=== PATIENT | female | born 1995 | race Caucasian/White ===

== ENCOUNTER 2017-01-19 20:22 | Emergency (ER) | payer OTHER ==
[~2017-01-19 20:22] MED LIST: LEXA10TA PO; LEXA20TA PO; LORA-474 PO; TEMA15 PO
[2017-01-19 20:25] VITALS: BP 146/92; PULSE 86; RESP 14; TEMP 97.9; O2SAT 100
--- NOTE | 2017-01-19 21:09 | PD ---
Physical Exam Time Seen by Provider: 21:09 Narrative 21 y/o female here with sore throat, cough, nausea for one week. vital signs reviewed. Seen at triage desk. Awaiting bed placement. Data Data Last Documented VS Vital Signs Date Time Temp Pulse Resp B/P Pulse Ox O2 Delivery O2 Flow Rate FiO2 01/19/17 20:25 97.9 86 14 146/92 100 Room Air [facility] Medical Record Reviewed: Yes Supervised Visit with TIM: Fransico Martini January 19, 2017 21:09
--- NOTE | 2017-01-19 21:25 | PD ---
HPI Chief Complaint: Cold / Flu Symptoms Time Seen by Provider: 21:25 Travel History International Travel<30 days: No Contact w/Intl Traveler<30days: No Traveled to known affect area: No History of Present Illness HPI 21-year-old female presents to the emergency department for evaluation of sore throat, difficulty swallowing, cough, and nausea worsening over the last week. Patient states that her cough and nausea have subsided but her throat is very painful. It is difficult to swallow. Reports subjective fever. She has been chilled. Denies any headache or nuchal rigidity. Patient has no other symptoms to report. PFSH Past Medical History Arthritis: No Asthma: No Autoimmune Disease: No Anxiety: Yes Depression: Yes Heart Rhythm Problems: No Cancer: No Cardiovascular Problems: No Chemotherapy: No Chest Pain: No Congestive Heart Failure: No Cerebrovascular Accident: No Diabetes: No Diminished Hearing: No Endocrine: No Genitourinary: No Headaches: No Hiatal Hernia: No Immune Disorder: No Kidney Stones: No Musculoskeletal: No Neurologic: No Psychiatric: Yes (anxiety, depression) Respiratory: No Immunizations Current: Yes Migraines: No Radiation Therapy: No Renal Failure: No Seizures: No Sickle Cell Disease: No Sleep Apnea: No Thyroid Disease: No Ulcer: No ?: Not LMP: 01/06/17 : 0 Para: 0 Miscarriage: 0 : 0 Past Surgical History Abdominal Surgery: No AICD: No Arteriovenous Shunt: No Body Medical Devices: thalacemia minor trait Cardiac Surgery: No Ear Surgery: No Endocrine Surgery: No Eye Surgery: No Genitourinary Surgery: No Insulin Pump: No Joint Replacement: No Neurologic Surgery: No Pacemaker: No Thoracic Surgery: No Other Surgery: No Social History Alcohol Use: No Tobacco Use: No Substance Use: No Allergies-Medications (Allergen,Severity, Reaction): Coded Allergies: Biaxin (Verified Allergy, Severe, 01/19/17) Per pt. Reported Meds & Prescriptions Reported Meds & Active Scripts Active Amoxicillin 500 Mg Tab 500 Mg PO BID 10 Days Review of Systems Except as stated in HPI: all other systems reviewed are Neg Physical Exam Narrative GENERAL: Well-nourished, well-developed female patient in no acute distress SKIN: Focused skin assessment warm/dry. HEAD: Normocephalic. EYES: No scleral icterus. No injection or drainage. ENT: Mucosa pink and moist. 2+ tonsillar edema with erythema and scattered exudate. No uvular edema. No uvular, palatal, or tonsillar deviation. Airway patent. Nasal turbinates appear normal without nasal blood, purulent drainage or septal hematoma. NECK: Supple, trachea midline. Anterior cervical lymphadenopathy. CARDIOVASCULAR: Regular rate and rhythm without murmurs, gallops, or rubs. RESPIRATORY: Breath sounds equal bilaterally. No accessory muscle use. GASTROINTESTINAL: Abdomen soft, non-tender, nondistended. MUSCULOSKELETAL: No cyanosis, or edema. BACK: Nontender without obvious deformity. No CVA tenderness. Data Data Last Documented VS Vital Signs Date Time Temp Pulse Resp B/P Pulse Ox O2 Delivery O2 Flow Rate FiO2 01/19/17 21:08 01/19/17 20:25 97.9 86 14 100 Room Air Orders Group A Rapid Strep Screen (01/19/17 21:24) Strep Culture (Group A) (01/19/17 21:25) MDM Medical Decision Making Medical Screen Exam Complete: Yes Emergency Medical Condition: Yes Medical Record Reviewed: Yes Differential Diagnosis Exudative pharyngitis viral versus strep versus gastroenteritis versus tonsillitis versus viral syndrome Narrative Course 21-year-old female presents to emergency department for evaluation of sore throat, nausea, fever worsening of the last week. Patient does have tonsillar edema and erythema with scattered exudate. She has associated lymphadenopathy. Strep screen is negative. Discussed this with the patient. she strongly believes she has strep throat. I explained to her accident to think eyelids for care. She is requesting an antibiotic. I have explained the possibility that this is viral and a culture was sent and if it grew positive we would have a diagnosis. I'll provide her with a prescription but strongly encouraged her to delay starting it until the culture grows in 3 days. She agrees to return immediately with any acute worsening of symptoms. Diagnosis Primary Impression: Exudative pharyngitis Referrals: Primary Care Physician Patient Instructions: General Instructions, Pharyngitis (ED) Departure Forms: Tests/Procedures, Work Release Enter return to work date: January 21, 2017 Additional Instructions: Warm salt water gargles may help to alleviate symptoms Follow-up with a primary care provider Tylenol and/or ibuprofen as directed on package as needed for pain Avoid abrasive and acidic foods Return immediately with any acute worsening of symptoms Med/Other Pt SpecificInfo: Prescription(s) given Scripts Amoxicillin 500 Mg Xul197 Mg PO BID 10 Days Ref 0 Prov:Kayleigh Bautista 01/19/17 Disposition: 01 DISCHARGE HOME Condition: Stable Kayleigh Bautista January 19, 2017 21:25
[2017-01-19] MEDS ORDERED: AMOX500T PO (22:40)
== END 2017-01-19 23:18 | disposition home or self-care (01) ==
LOC: NEPK 20:22
DX: J02.9 Acute pharyngitis, unspecified (principal)
CPT/HCPCS: 87081; 87880; 99283

== ENCOUNTER 2017-11-10 09:42 | Emergency (ER) | payer OTHER ==
[~2017-11-10] VITALS: Ht 167.6 cm; Wt 100.0 kg
[~2017-11-10 09:42] MED LIST changes: +AMOX500T PO; -LEXA10TA PO; -LEXA20TA PO; -LORA-474 PO; -TEMA15 PO
[2017-11-10 09:43] VITALS: BP 131/60; PULSE 76; RESP 14; TEMP 97.8; O2SAT 100
[2017-11-10 10:52] VITALS: BP 122/82; PULSE 72; RESP 18; O2SAT 100
--- NOTE | 2017-11-10 11:30 | PD ---
HPI Chief Complaint: Psychiatric Symptoms Time Seen by Provider: 10:30 Travel History International Travel<30 days: No Contact w/Intl Traveler<30days: No Traveled to known affect area: No History of Present Illness HPI 22-year-old female presents voluntarily to the emergency department for psychological evaluation. She reports feeling depressed and anxious about recent events after going through a breakup with her boyfriend about a month ago. She says she has had thoughts of suicide but says she does not have any plan to kill herself and does not want to kill herself. She admits to "harming herself "yesterday by taking 4 times the amount of her prescribed gabapentin. Says she is only supposed to take 1 pill and she took 4 of them. She said she did not do it in an attempt to kill herself, but to numb the feelings that she was feeling. She has history of suicidal attempt by overdosing and trying to drown herself. Denies homicidal ideations. Reports occasional marijuana use. Otherwise denies other illicit drug use. Reports alcohol use socially. States the voices in her head tell her that she is ugly, stupid, and other degrading things. She denies visual hallucinations. Symptoms were exacerbated about 3 weeks ago when her ex-boyfriend started seeing another girl. No known relieving factors. Symptoms are moderate to severe in severity. Psychiatrist is Dr. Abreu. She went to urgent care yesterday in regards to her complaints and she was prescribed Lexapro. History of anxiety and depression. Denies significant past medical history. Allergies to clarithromycin. Has no other medical complaints. No other modifying factors or associated signs and symptoms. PFSH Past Medical History Arthritis: No Asthma: No Autoimmune Disease: No Anxiety: Yes Depression: Yes Heart Rhythm Problems: No Cancer: No Cardiovascular Problems: No Chemotherapy: No Chest Pain: No Congestive Heart Failure: No Cerebrovascular Accident: No Diabetes: No Diminished Hearing: No Endocrine: No Genitourinary: No Headaches: No Hiatal Hernia: No Immune Disorder: No Kidney Stones: No Musculoskeletal: No Neurologic: No Psychiatric: Yes (anxiety, depression) Respiratory: No Immunizations Current: Yes Migraines: No Radiation Therapy: No Renal Failure: No Seizures: No Sickle Cell Disease: No Sleep Apnea: No Thyroid Disease: No Ulcer: No LMP: 10/13/17 : 0 Para: 0 Miscarriage: 0 : 0 Past Surgical History Abdominal Surgery: No AICD: No Arteriovenous Shunt: No Body Medical Devices: thalacemia minor trait Cardiac Surgery: No Ear Surgery: No Endocrine Surgery: No Eye Surgery: No Genitourinary Surgery: No Insulin Pump: No Joint Replacement: No Neurologic Surgery: No Pacemaker: No Thoracic Surgery: No Other Surgery: No Social History Alcohol Use: No Tobacco Use: No Substance Use: No Allergies-Medications (Allergen,Severity, Reaction): Coded Allergies: clarithromycin (Unverified Allergy, Severe, 05/03/17) Per pt. Reported Meds & Prescriptions Reported Meds & Active Scripts Active Amoxicillin 500 Mg Tab 500 Mg PO BID 10 Days Review of Systems Except as stated in HPI: all other systems reviewed are Neg Physical Exam Narrative GENERAL: Well-nourished, well-developed black female patient, in no acute distress SKIN: Warm and dry. HEAD: Atraumatic. Normocephalic. EYES: Pupils equal and round. ENT: Mucosa pink and moist. NECK: Supple. Trachea midline. CARDIOVASCULAR: Regular rate and rhythm. No murmur appreciated. RESPIRATORY: No accessory muscle use. Clear to auscultation. Breath sounds equal bilaterally. GASTROINTESTINAL: Abdomen soft, non-tender, nondistended. Hepatic and splenic margins not palpable. Bowel sounds are active 4 quadrants. MUSCULOSKELETAL: No obvious deformities. No clubbing. No cyanosis. No edema. BACK: No CVA tenderness. NEUROLOGICAL: Awake and alert. Oriented 3. No obvious cranial nerve deficits. Motor grossly within normal limits. Normal speech. Moves all extremities. 5/5 strength to all extremities. PSYCHIATRIC: No delusional thought processes. No hallucinations. Data Data Last Documented VS Vital Signs Date Time Temp Pulse Resp B/P (MAP) Pulse Ox O2 Delivery O2 Flow Rate FiO2 11/10/17 10:52 72 18 122/82 (95) 100 Room Air 11/10/17 09:43 97.8 Orders Orders Complete Blood Count With Diff (11/10/17 10:29) Comprehensive Metabolic Panel (11/10/17 10:29) Thyroid Stimulating Hormone (11/10/17 10:29) Ed Urine Pregnancytest Poc (11/10/17 10:29) Psych Screen (11/10/17 10:29) Drug Screen, Random Urine (11/10/17 10:29) Alcohol (Ethanol) (11/10/17 10:29) Salicylates (Aspirin) (11/10/17 10:29) Tylenol (Acetaminophen) (11/10/17 10:29) Diet Regular Basic (11/10/17 Lunch) MDM Medical Decision Making Medical Screen Exam Complete: Yes Emergency Medical Condition: Yes Medical Record Reviewed: Yes Differential Diagnosis Depression, anxiety, suicidal thoughts, medical clearance for psychological evaluation Narrative Course Patient presents voluntarily. Physical examination and vital signs are essentially unremarkable. Patient has no medical complaints to report. Psych screen has been ordered. If the laboratory results are unremarkable, the patient will be medically cleared for psychiatric evaluation and disposition. Diagnosis Primary Impression: Encounter for psychological evaluation Condition: Stable Sophia June Nov 10, 2017 11:30
[2017-11-10 12:34] LABS: AUTOMATED NEUTROPHIL # 2.9 TH/MM3 (1.8-7.7); BASOPHIL % 0.9 % (0.0-2.0); EOSINOPHIL # 0.1 TH/MM3 (0-0.4); EOSINOPHIL % 2.4 % (0.0-4.0); HEMATOCRIT 38.9 % (35.0-46.0); HEMOGLOBIN 12.5 GM/DL (11.6-15.3); LYMPH % 31.7 % (9.0-44.0); LYMPHOCYTE # 1.6 TH/MM3 (1.0-4.8); MEAN CELL VOLUME 68.4 FL (80.0-100.0); MEAN CORPUSCULAR HGB CONC 32.1 % (32.0-36.0); MEAN PLATELET VOLUME 9.2 FL (7.0-11.0); MONOCYTE # 0.4 TH/MM3 (0-0.9); PLATELET COUNT 264 TH/MM3 (150-450); RED BLOOD COUNT 5.69 MIL/MM3 (4.00-5.30); RED CELL DISTRIBUTION WIDTH 15.7 % (11.6-17.2)
[2017-11-10 12:53] LABS: AST (GOT) 13 U/L (15-37); BLOOD UREA NITROGEN 11 MG/DL (7-18); CALCIUM 8.9 MG/DL (8.5-10.1); CHLORIDE 105 MEQ/L (98-107); CREATININE 0.95 MG/DL (0.50-1.00); GLOMERULAR FILTRATION RATE 73 ML/MIN (>89); GLUCOSE,RANDOM 92 MG/DL (74-106); SODIUM (NA) 137 MEQ/L (136-145)
[2017-11-10 13:04] LABS: ALKALINE PHOSPHATASE 66 U/L (45-117); ALT (GPT) 15 U/L (10-53); TOTAL BILIRUBIN ADULT 0.3 MG/DL (0.2-1.0); TOTAL PROTEIN 7.9 GM/DL (6.4-8.2)
[2017-11-10 13:16] LABS: ACETAMINOPHEN LESS THAN 2.0 MCG/ML (10.0-30.0)
--- NOTE | 2017-11-10 14:14 | PD ---
History of Present Illness Chief Complaint: Psychiatric Symptoms Time Seen by Provider: 13:50 Travel History International Travel<30 Days: No Contact w/Intl Traveler<30days: No Known affected area: No Legal Status Legal Status: Voluntary History of Present Illness: History of Present Illness HPI 22-year-old female with reported history of depression who presents voluntarily to the emergency department for psychological evaluation. She reports a history of depression for approximately 3 years with increase in objective symptoms for the past 3 months. She had a breakup with her boyfriend approximately one month ago which she believes she is having a difficult time accepting. The patient saw her primary care physician yesterday and was started on Lexapro and gabapentin. She had previously been prescribed Lexapro but stopped taking that medication approximately a year ago. Yesterday she states that she was feeling anxious and to look for 100 mg of the gabapentin. She states she did not take those pills in an attempt to kill herself but to rather numb the feelings that she was feeling. Patient presented vague symptoms of depression including " feeling unstable, changes in mood, that she has no sense of self, that she is feeling overwhelmed and would like a couple of days of rest." She does not present any sleep or appetite disturbance. She saw a therapist last week by the name of Marimar Cerda. She has an upcoming appointment on Tuesday with Dr. Whitney her outpatient psychiatrist. Patient has been monitored in [facility]. Has presented no behavioral concerns. No suicidality. She has been making frequent requests for food and other necessities. Patient seen. She is alert, oriented, female dressed in [facility] and maintaining basic hygiene. Her speech is clear, logical goal-directed. She is somewhat histrionic in her presentation and overly dramatic at times. There is no thought process or content disturbance. No hallucinations, no paranoia, no delusion, mood is mildly depressed. There is no suicidal or homicidal ideation , intent or plan. She continues to state that she took the fourth gabapentin in an effort to numb her pain from the recent breakup. Telephone call to patient's father with her consent at [phone]. He has no concerns if she were to be discharged. He strongly recommend that she continue with psychiatric medications and will pick her up if she is in fact discharge. [facility] Past Medical History Arthritis: No Asthma: No Autoimmune Disease: No Anxiety: Yes Depression: Yes Heart Rhythm Problems: No Cancer: No Cardiovascular Problems: No Chemotherapy: No Chest Pain: No Congestive Heart Failure: No Cerebrovascular Accident: No Diabetes: No Diminished Hearing: No Endocrine: No Genitourinary: No Headaches: No Hiatal Hernia: No Immune Disorder: No Kidney Stones: No Musculoskeletal: No Neurologic: No Psychiatric: Yes (anxiety, depression) Respiratory: No Immunizations Current: Yes Migraines: No Radiation Therapy: No Renal Failure: No Seizures: No Sickle Cell Disease: No Sleep Apnea: No Thyroid Disease: No Ulcer: No LMP: 10/13/17 : 0 Para: 0 Miscarriage: 0 : 0 Past Surgical History Abdominal Surgery: No AICD: No Arteriovenous Shunt: No Body Medical Devices: thalacemia minor trait Cardiac Surgery: No Ear Surgery: No Endocrine Surgery: No Eye Surgery: No Genitourinary Surgery: No Insulin Pump: No Joint Replacement: No Neurologic Surgery: No Pacemaker: No Thoracic Surgery: No Other Surgery: No Psychiatric History Psychiatric History Hx Psychiatric Treatment: Patient has a history of in-patient treatment at [facility] beginning on 10/16/2014. Last psychiatric hospitalization was March 2015.Has previous hx of superficially cutting her wrist. She stopped outpatietn treatmetn approximately one year ago. 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 Lives with her parents and her 2 brothers. Hx Alcohol Use: No Hx Tobacco Use: No Hx Substance Use: Yes Substance Use Type: Alcohol (reports had been drinking about 2-3 beers per week and last had a drink 1 week ago), Marijuana (vocational) Hx of Substance Use Treatment: No Family Psychiatric History Negative Allergies-Medications (Allergen,Severity, Reaction): Coded Allergies: clarithromycin (Unverified Allergy, Severe, 05/03/17) Per pt. Reported Meds & Prescriptions Reported Meds & Active Scripts Active Amoxicillin 500 Mg Tab 500 Mg PO BID 10 Days Mental Status Examination Appearance: Appropriate Consciousness: Alert Orientation: x4 Motor Activity: Normal gait Speech: Unremarkable Language: Adequate Fund of Knowledge: Adequate Attention and Concentration: Adequate Memory: Unremarkable Mood: Appropriate, Sad Affect: Appropriate Thought Process & Associations: Intact, Logical, Goal directed Thought Content: Appropriate Hallucination Type: None Delusion Type: None Suicidal Ideation: No Suicidal Plan: No Suicidal Intention: No Homicidal Ideation: No Homicidal Plan: No Homicidal Intention: No Insight: Adequate Judgment: Impulsive MDM Medical Decision Making Medical Record Reviewed: Yes Assessment/Plan 22-year-old female with reported history of depression who presents voluntarily to the emergency department for psychological evaluation. She reports a history of depression for approximately 3 years with increase in objective symptoms for the past 3 months. She had a breakup with her boyfriend approximately one month ago which she believes she is having a difficult time accepting. The patient saw her primary care physician yesterday and was started on Lexapro and gabapentin. She had previously been prescribed Lexapro but stopped taking that medication approximately a year ago. Yesterday she states that she was feeling anxious and to look for 100 mg of the gabapentin. She states she did not take those pills in an attempt to kill herself but to rather numb the feelings that she was feeling. Patient has continued to deny any suicidal or homicidal ideation, intent or plan. She has begun her medication once again and will have a psychiatric outpatient appointment next Tuesday. She also has began outpatient counseling and is strongly recommended to follow up with that. At this time she doesn't meet criteria for inpatient psychiatric treatment. She is provided support and psychoeducation. Psychiatric clear for discharge at this time. Orders Orders Complete Blood Count With Diff (11/10/17 10:29) Comprehensive Metabolic Panel (11/10/17 10:29) Thyroid Stimulating Hormone (11/10/17 10:29) Ed Urine Pregnancytest Poc (11/10/17 10:29) Psych Screen (11/10/17 10:29) Drug Screen, Random Urine (11/10/17 10:29) Alcohol (Ethanol) (11/10/17 10:29) Salicylates (Aspirin) (11/10/17 10:29) Tylenol (Acetaminophen) (11/10/17 10:29) Diet Regular Basic (11/10/17 Lunch) Results Vital Signs Date Time Temp Pulse Resp B/P (MAP) Pulse Ox O2 Delivery O2 Flow Rate FiO2 11/10/17 10:52 72 18 122/82 (95) 100 Room Air 11/10/17 09:43 97.8 76 14 131/60 (83) 100 Laboratory Tests Test 11/10/17 10:10 11/10/17 11:32 Urine Opiates Screen NEG Urine Barbiturates Screen NEG Urine Amphetamines Screen NEG Urine Benzodiazepines Screen NEG Urine Cocaine Screen NEG Urine Cannabinoids Screen NEG White Blood Count 5.0 Red Blood Count 5.69 Hemoglobin 12.5 Hematocrit 38.9 Mean Corpuscular Volume 68.4 Mean Corpuscular Hemoglobin 22.0 Mean Corpuscular Hemoglobin Concent 32.1 Red Cell Distribution Width 15.7 Platelet Count 264 Mean Platelet Volume 9.2 Neutrophils (%) (Auto) 58.0 Lymphocytes (%) (Auto) 31.7 Monocytes (%) (Auto) 7.0 Eosinophils (%) (Auto) 2.4 Basophils (%) (Auto) 0.9 Neutrophils # (Auto) 2.9 Lymphocytes # (Auto) 1.6 Monocytes # (Auto) 0.4 Eosinophils # (Auto) 0.1 Basophils # (Auto) 0.0 CBC Comment DIFF FINAL Differential Comment Blood Urea Nitrogen 11 Creatinine 0.95 Random Glucose 92 Total Protein 7.9 Albumin 4.0 Calcium Level 8.9 Alkaline Phosphatase 66 Aspartate Amino Transf (AST/SGOT) 13 Alanine Aminotransferase (ALT/SGPT) 15 Total Bilirubin 0.3 Sodium Level 137 Potassium Level 4.3 Chloride Level 105 Carbon Dioxide Level 25.0 Anion Gap 7 Estimat Glomerular Filtration Rate 73 Thyroid Stimulating Hormone 3rd Gen 1.030 Salicylates Level LESS THAN 1.7 Acetaminophen Level LESS THAN 2.0 Ethyl Alcohol Level LESS THAN 3 Diagnosis Primary Impression: Adjustment disorder Psychiatrically Cleared: Yes Med/ Other Pt Specific Info: No Change to Meds Disposition: 01 DISCHARGE HOME Condition: Stable Problem Qualifiers Primary Impression: Adjustment disorder Qualified Codes: F43.21 - Adjustment disorder with depressed mood Payton Trevizo Nov 10, 2017 14:14
--- NOTE | 2017-11-10 15:20 | PD ---
Physical Exam Time Seen by Provider: 15:20 JIMENA Castellon has evaluated the patient, lifted the [place] act and cleared the patient for discharge. Data Data Last Documented VS Vital Signs Date Time Temp Pulse Resp B/P (MAP) Pulse Ox O2 Delivery O2 Flow Rate FiO2 11/10/17 15:14 11/10/17 10:52 72 18 100 Room Air 11/10/17 09:43 97.8 Orders Orders Complete Blood Count With Diff (11/10/17 10:29) Comprehensive Metabolic Panel (11/10/17 10:29) Thyroid Stimulating Hormone (11/10/17 10:29) Ed Urine Pregnancytest Poc (11/10/17 10:29) Psych Screen (11/10/17 10:29) Drug Screen, Random Urine (11/10/17 10:29) Alcohol (Ethanol) (11/10/17 10:29) Salicylates (Aspirin) (11/10/17 10:29) Tylenol (Acetaminophen) (11/10/17 10:29) Diet Regular Basic (11/10/17 Lunch) Ed Discharge Order (11/10/17 15:20) Labs Laboratory Tests Test 11/10/17 10:10 11/10/17 11:32 Urine Opiates Screen NEG Urine Barbiturates Screen NEG Urine Amphetamines Screen NEG Urine Benzodiazepines Screen NEG Urine Cocaine Screen NEG Urine Cannabinoids Screen NEG White Blood Count 5.0 TH/MM3 Red Blood Count 5.69 MIL/MM3 Hemoglobin 12.5 GM/DL Hematocrit 38.9 % Mean Corpuscular Volume 68.4 FL Mean Corpuscular Hemoglobin 22.0 PG Mean Corpuscular Hemoglobin Concent 32.1 % Red Cell Distribution Width 15.7 % Platelet Count 264 TH/MM3 Mean Platelet Volume 9.2 FL Neutrophils (%) (Auto) 58.0 % Lymphocytes (%) (Auto) 31.7 % Monocytes (%) (Auto) 7.0 % Eosinophils (%) (Auto) 2.4 % Basophils (%) (Auto) 0.9 % Neutrophils # (Auto) 2.9 TH/MM3 Lymphocytes # (Auto) 1.6 TH/MM3 Monocytes # (Auto) 0.4 TH/MM3 Eosinophils # (Auto) 0.1 TH/MM3 Basophils # (Auto) 0.0 TH/MM3 CBC Comment DIFF FINAL Differential Comment Blood Urea Nitrogen 11 MG/DL Creatinine 0.95 MG/DL Random Glucose 92 MG/DL Total Protein 7.9 GM/DL Albumin 4.0 GM/DL Calcium Level 8.9 MG/DL Alkaline Phosphatase 66 U/L Aspartate Amino Transf (AST/SGOT) 13 U/L Alanine Aminotransferase (ALT/SGPT) 15 U/L Total Bilirubin 0.3 MG/DL Sodium Level 137 MEQ/L Potassium Level 4.3 MEQ/L Chloride Level 105 MEQ/L Carbon Dioxide Level 25.0 MEQ/L Anion Gap 7 MEQ/L Estimat Glomerular Filtration Rate 73 ML/MIN Thyroid Stimulating Hormone 3rd Gen 1.030 uIU/ML Salicylates Level LESS THAN 1.7 MG/DL Acetaminophen Level LESS THAN 2.0 MCG/ML Ethyl Alcohol Level LESS THAN 3 MG/DL MDM Supervised Visit with TIM: No Narrative Course JIMENA Cain has evaluated the patient, lifted the [place] act and cleared the patient for discharge. Patient contracts safety. Denies suicidal or homicidal ideations. Patient will be provided community resource packet to [facility] for follow-up. Has friends and family for support. Patient was medically cleared by alternate provider prior to psych screening. Patient has been evaluated by psychiatry and and is now cleared for discharge. Diagnosis Primary Impression: Adjustment disorder Qualified Codes: F43.21 - Adjustment disorder with depressed mood Referrals: [facility] (Out patient) [facility] as needed Primary Care Physician Psychiatrist Karla [facility] Patient Instructions: General Instructions, Mood Disorders (ED) Departure Forms: Work Release, Enter return to work date: Nov 11, 2017 Tests/Procedures Additional Instruction: Contract safety to your self and others Follow-up with psychiatry Follow-up with primary care provider Follow-up with [facility] [place] Return to the emergency department immediately with worsening of symptoms Med/Other Pt SpecificInfo: No Change to Meds, No Meds Exist/No RX given Disposition: DISCHARGE HOME Condition: Stable Sophia June Nov 10, 2017 15:20
== END 2017-11-10 15:23 | disposition home or self-care (01) ==
LOC: NEPJ 09:42
DX: F43.21 Adjustment disorder with depressed mood (principal); Z79.899 Other long term (current) drug therapy
CPT/HCPCS: 80053; 80307; 84443; 84703; 85025; 99284